=== PATIENT | male | born 1985 | race Caucasian/White ===

== ENCOUNTER 2017-04-11 17:51 | Emergency (ER) | payer BC ==
[2017-04-11] MEDS ORDERED: KETOROLAC 30 MG/ML 1 ML VIAL IVP STA (18:53)
[2017-04-11] MEDS ORDERED: SODIUM CHLORIDE 0.9% 1,000 ML IV STA (18:53)
--- NOTE | 2017-04-11 18:59 | ED ---
General Adult HPI - General Chief complaint: Headache Stated complaint: migraine Time Seen by Provider: 04/11/17 18:38 Source: patient Mode of arrival: ambulatory Limitations: no limitations - History of Present Illness Initial comments: 31-year-old male patient presents to emergency department today for evaluation after having an episode of visual disturbance with sudden onset headache. Patient states approximately 2 hours ago he was at work on a computer when his vision went very bright, then blurred. Patient states that this lasted approximately 5-6 minutes then resolved. Patient states a few minutes later he had return of the visual disturbance with a sudden onset headache. Patient states the headache feels like a pressure behind his eyes. He states that the headache is persistent however the visual disturbance has resolved. He states he does feel lightheaded and dizzy. He states he also had shortness of breath with this. He denies any weakness, numbness, tingling, chest pain, or palpitations. He denies any history of similar symptoms. He states he did have migraine headaches when he was in middle school however they resolved and he hasn't had one since. He denied any aura or visual disturbance with those headaches. Patient denies any recent rash, fever, chills, abdominal pain, nausea , vomiting, diarrhea, constipation, back pain, hematuria, dysuria, urinary urgency, urinary frequency, or any other complaints. Patient does have past medical history significant for hypertension. - Related Data Home Medications Medication Instructions Recorded Confirmed Allopurinol [Zyloprim] 300 mg PO DAILY 04/11/17 04/11/17 Meloxicam [Mobic] 7.5 mg PO AC-BID 04/11/17 04/11/17 Omeprazole 40 mg PO DAILY 04/11/17 04/11/17 amLODIPine BESYLATE/BENAZEPRIL 1 cap PO DAILY 04/11/17 04/11/17 [Lotrel 5-20 mg Capsule] Allergies Allergy/AdvReac Type Severity Reaction Status Date / Time No Known Allergies Allergy Verified 04/11/17 18:56 Review of Systems ROS Statement: Those systems with pertinent positive or pertinent negative responses have been documented in the HPI. ROS Other: All systems not noted in ROS Statement are negative. Past Medical History Additional Past Medical History / Comment(s): gout, kidney stones History of Any Multi-Drug Resistant Organisms: None Reported Additional Past Surgical History / Comment(s): kidney stones Past Psychological History: No Psychological Hx Reported Smoking Status: Never smoker Past Alcohol Use History: Rare Past Drug Use History: None Reported General Exam Limitations: no limitations General appearance: alert, in no apparent distress, other (This is a well- developed, well-nourished adult male patient in no acute distress. Vital signs upon presentation are temperature 98.1F, pulse 77, respirations 18, blood pressure 146/86, pulse ox 98% on room air.) Head exam: Present: atraumatic, normocephalic, normal inspection Eye exam: Present: normal appearance, PERRL, EOMI. Absent: scleral icterus, conjunctival injection, nystagmus, periorbital swelling ENT exam: Present: normal exam, normal oropharynx, mucous membranes moist, TM's normal bilaterally Neck exam: Present: normal inspection, full ROM. Absent: tenderness, meningismus, lymphadenopathy Respiratory exam: Present: normal lung sounds bilaterally. Absent: respiratory distress, wheezes, rales, rhonchi, stridor Cardiovascular Exam: Present: regular rate, normal rhythm, normal heart sounds. Absent: systolic murmur, diastolic murmur, rubs, gallop, clicks GI/Abdominal exam: Present: soft, normal bowel sounds. Absent: distended, tenderness, guarding, rebound, rigid Neurological exam: Present: alert, oriented X3, CN II-XII intact, other ( Strength in all extremities 5/5.) Psychiatric exam: Present: normal affect, normal mood Skin exam: Present: warm, dry, intact, normal color. Absent: rash Course Vital Signs 04/11/17 18:16 Temperature 98.1 F Pulse Rate 77 Respiratory 18 Rate Blood Pressure 146/86 O2 Sat by Pulse 98 Oximetry EKG Findings - EKG Comments: EKG Findings:: EKG obtained in 1921 shows normal sinus rhythm with minimal voltage criteria for LVH, may be a normal variant. Ventricular rate is 78, W[place] interval 186, QRS duration 102, QT 390, QTC 444. No evidence of ST elevation or depression. Medical Decision Making - Medical Decision Making 31-year-old male patient presented for evaluation of visual disturbance and sudden onset headache. Labs reviewed and were unremarkable. CT of the brain without contrast showed no acute abnormalities. Physical exam is unremarkable, patient neurologically intact. Patient reports that visual disturbance has resolved. Patient did have mild improvement headache after receiving medications here in the department. He is driving himself today and was unable to receive anything stronger for pain. Patient was instructed to follow-up with his primary care physician for recheck in 1-2 days. He is instructed to return here immediately for any new, worsening, or concerning symptoms. He verbalized understanding and agreed with this plan. - Lab Data Result diagrams: 04/11/17 19:15 04/11/17 19:15 Lab Results 04/11/17 04/11/17 04/11/17 Range/Units 19:15 19:15 19:15 WBC 7.1 (3.8-10.6) k/uL RBC 5.82 (4.30-5.90) m/uL Hgb 16.2 (13.0-17.5) gm/dL Hct 49.5 (39.0-53.0) % MCV 85.2 (80.0-100.0) fL MCH 27.9 (25.0-35.0) pg MCHC 32.7 (31.0-37.0) g/dL RDW 14.5 (11.5-15.5) % Plt Count 224 (150-450) k/uL Neutrophils % 70 % Lymphocytes % 22 % Monocytes % 5 % Eosinophils % 1 % Basophils % 1 % Neutrophils # 4.9 (1.3-7.7) k/uL Lymphocytes # 1.5 (1.0-4.8) k/uL Monocytes # 0.4 (0-1.0) k/uL Eosinophils # 0.1 (0-0.7) k/uL Basophils # 0.0 (0-0.2) k/uL Sodium 141 (137-145) mmol/L Potassium 4.1 (3.5-5.1) mmol/L Chloride 105 (98-107) mmol/L Carbon Dioxide 22 (22-30) mmol/L Anion Gap 14 mmol/L BUN 14 (9-20) mg/dL Creatinine 0.96 (0.66-1.25) mg/dL Est GFR (MDRD) Af Amer >60 (>60 ml/min/1.73 sqM) Est GFR (MDRD) Non-Af >60 (>60 ml/min/1.73 sqM) Glucose 124 H (74-99) mg/dL Calcium 9.6 (8.4-10.2) mg/dL Total Bilirubin 0.7 (0.2-1.3) mg/dL AST 33 (17-59) U/L ALT 49 (21-72) U/L Alkaline Phosphatase 66 (38-126) U/L Troponin I <0.012 (0.000-0.034) ng/mL Total Protein 7.1 (6.3-8.2) g/dL Albumin 4.2 (3.5-5.0) g/dL - Radiology Data Radiology results: report reviewed, image reviewed CT of the head is performed without contrast shows ventricles are of normal size. There is no mass effect or midline shift. There is no sign of intracranial hemorrhage. The calvarium is intact. There is debris in the left external auditory canal. Impression by Dr. Keita shows negative computed tomography scan of the brain. Disposition Clinical Impression: Headache Disposition: HOME SELF-CARE Condition: Good Instructions: Acute Headache (ED) Additional Instructions: Increase fluids. Follow up with your primary care physician for recheck in 1-2 days. Return here immediately for any new, worsening, or concerning symptoms. Referrals: David Flores MD [Primary Care Provider] - 1-2 days Time of Disposition: 20:22
[2017-04-11 19:38] LABS: Basophils % (A) 1 %; CH 27.3; CHCM 32.2; Eosinophils # (A) 0.1 k/uL (0-0.7); Eosinophils % (A) 1 %; HCT 49.5 % (39.0-53.0); HDW 2.66; HGB 16.2 gm/dL (13.0-17.5); Luc % (Auto) 1; Lymphocytes # (A) 1.5 k/uL (1.0-4.8); Lymphocytes % (A) 22 %; MCH 27.9 pg (25.0-35.0); MCHC 32.7 g/dL (31.0-37.0); MCV 85.2 fL (80.0-100.0); Mean Platelet Volume 6.4; Monocytes # (A) 0.4 k/uL (0-1.0); Monocytes % (A) 5 %; Neutrophils # (A) 4.9 k/uL (1.3-7.7); Neutrophils % (A) 70 %; RBC 5.82 m/uL (4.30-5.90); RDW 14.5 % (11.5-15.5); WBC 7.1 k/uL (3.8-10.6); WBC (Perox) 6.42
[2017-04-11 19:47] LABS: ALT 49 U/L (21-72); AST 33 U/L (17-59); Alkaline Phosphatase 66 U/L (38-126); Anion Gap 14 mmol/L; Blood Urea Nitrogen 14 mg/dL (9-20); Calcium 9.6 mg/dL (8.4-10.2); Carbon Dioxide 22 mmol/L (22-30); Chloride 105 mmol/L (98-107); Glucose 124 mg/dL (74-99); Non-African American GFR(MDRD) >60 (>60 ml/min/1.73 sqM); Potassium 4.1 mmol/L (3.5-5.1); Sodium 141 mmol/L (137-145); Total Bilirubin 0.7 mg/dL (0.2-1.3); Total Protein 7.1 g/dL (6.3-8.2)
--- NOTE | 2017-04-11 19:52 | CT ---
EXAMINATION TYPE: CT brain wo con DATE OF EXAM: 04/11/2017 COMPARISON: NONE HISTORY: Visual disturbance and dizziness CT DLP: 1116 mGycm. Automated Exposure Control for Dose Reduction was Utilized. TECHNIQUE: CT scan of the head is performed without contrast. FINDINGS: Ventricles have normal size. There is no mass effect nor midline shift. There is no sign of intracranial hemorrhage. The calvarium is intact. There is debris in the left external auditory miller l. IMPRESSION: Negative CT scan of the brain..
[2017-04-11] MEDS ORDERED: ACETAMINOPHEN TAB 500 MG TAB PO STA (20:20)
[2017-04-11 20:41] VITALS: BP 124/78; PULSE 68; RESP 16; TEMP 97.6
== END 2017-04-11 20:40 | disposition home or self-care (01) ==
LOC: EC 17:51
DX: R51 Headache (principal); R42 Dizziness and giddiness; R06.02 Shortness of breath; M10.9 Gout, unspecified; I10 Essential (primary) hypertension; Z87.442 Personal history of urinary calculi; Z79.899 Other long term (current) drug therapy; Z79.1 Long term (current) use of non-steroidal anti-inflammatories (NSAID); Z86.69 Personal history of other diseases of the nervous system and sense organs
CPT/HCPCS: 96361 ×2; 96374 ×2; 99284 ×2; 36415; 93005; 80053; 84484; 85025; 70450; J1885

== ENCOUNTER → 2018-02-05 | Outpatient (CLI) | payer BC ==
--- NOTE | 2018-02-05 16:10 | CONS ---
CONSULTATION DATE OF SERVICE: 02/05/2018 32-year-old gentleman has been evaluated in the sleep center for possible obstructive sleep apnea-hypopnea syndrome. Patient has been referred to [facility] by [facility]. The nasal breathing restricted bilaterally. HISTORY OF PRESENT ILLNESS/SLEEP WAKE EVALUATION: SLEEP SCHEDULE: Patient's usual sleep schedule working days from around 9:00 p.m. to 7 a.m. and on weekends from around 10 p.m. until 8 or 9:00 am. FALLING ASLEEP: No problem with falling asleep, although patient has TV set in bedroom. DURING SLEEP: He sleeps by himself with snoring. Nobody did tell him about episodes of stopped breathing during the sleep. He wakes up from sleep 2 times with dry mouth. DURING THE DAY/SLEEP WAKE EVALUATION: Sometimes he may feel some tiredness and sleepiness during the day, especially if he is not doing anything. [place] Sleepiness Scale increased to 11. PAST MEDICAL HISTORY: Positive for gout and hypertension. MEDICATIONS: Lotrel and Zyloprim. PAST SURGICAL HISTORY: None. SOCIAL HISTORY: Positive for smoking in the past, quit 12 years ago. Alcohol consumption none. FAMILY HISTORY: Hypertension, snoring, diabetes. REVIEW OF SYSTEMS: Snoring, awakenings from sleep, sometimes sleepiness during the day. PHYSICAL EXAM: A 32-year-old gentleman without distress. BP 180/85, HR 92, RR 18, height 6 feet , weight 457.8, BMI 50.2, temperature 98.1. Oxygen saturation on room air 96%. Oropharynx: Low position of soft palate. Wide neck 19.5 inches in circumference. ABDOMEN: Obese. Neck Supple, no JVD. Thyroid is not palpable. LUNGS Clear to percussion and to auscultation. Good air exchange. No wheezing or rhonchi. HEART S1, S2 regular. No murmurs, gallops, or rubs. ABDOMEN: Obese. Soft and nontender. Bowel sounds are present. No organomegaly appreciated. EXTREMITIES No clubbing or cyanosis. STAMP PAD MAKER Awake, alert, and oriented X3. Cranial nerves 2 to 7 intact. There is no fasciculation or atrophy. noted. No focal deficits observed. IMPRESSION: 1. Snoring, awakenings from sleep, small oropharyngeal air space. Wide neck. Restriction of nasal breathing bilaterally. Obstructive sleep apnea-hypopnea syndrome. 2. Morbid obesity, BMI 50.2. 3. Gout. 4. Hypertension, not on good control with the present medication. Today, blood pressure in the office increased significantly. PLAN: 1. Polysomnography for evaluation of patient's breathing during sleep. 2. CPAP/BiPAP titration if sleep study confirms obstructive sleep apnea-hypopnea syndrome. 3. Preferable position during sleep on the side. 4. No driving if patient feels any sleepiness. 5. I will see patient for follow up visit to explain results of testing and following plan. Thank you very much for referring this patient for consultation. Sincerely, Cleve Del Rosario MD, PhD, FAASM Diplomat of [employer] [facility] [employer] [facility] [place] MMODL / ROSEANNEN: [id number] /
== END | disposition home or self-care (01) ==
LOC: SLEEP 14:30
PROVIDERS: ATTEND Internal Medicine
DX: G47.33 Obstructive sleep apnea (adult) (pediatric) (principal); E66.01 Morbid (severe) obesity due to excess calories; I10 Essential (primary) hypertension; M10.9 Gout, unspecified; Z79.899 Other long term (current) drug therapy; Z87.891 Personal history of nicotine dependence; Z68.43 Body mass index [BMI] 50.0-59.9, adult
CPT/HCPCS: 99211

== ENCOUNTER → 2018-04-02 | Outpatient (CLI) | payer BC ==
--- NOTE | 2018-04-02 17:28 | PN ---
PROGRESS NOTE DATE OF SERVICE: 04/02/2018 This is a 32-year-old gentleman who has been followed in the sleep center for treatment of obstructive sleep apnea-hypopnea syndrome. Recently the patient had a home sleep apnea test which showed extremely severe sleep apnea. After that the patient underwent titration and subsequently was started on treatment with BiPAP. He was able to use his BiPAP equipment without significant problems, except sometimes he does not feel comfortable with the full-face mask. But otherwise with the machine he feels much better during the day and he sleeps much better. I checked his BiPAP unit and reading from his BiPAP machine. He is using equipment 100% of the time. Average usage is 6 hours and 20 minutes. He never uses it for less than 4 hours. Pressure in the machine is 19/15 cm of water. Average leak 29 L/minute. Apnea-hypopnea index reading for the last month is 5.5, which is in good range. [place] Sleepiness Scale today is only 2. MEDICATION: Lotrel, Zyloprim. PHYSICAL EXAMINATION: GENERAL A pleasant gentleman in no distress. VITAL SIGNS: BP 134/77, HR 81, RR 16, weight 462.6, temperature 98.1, oxygen saturation at room air 97%. HEENT: PERRLA, EOMI. Evaluation of oropharynx showed tongue protrudes midline; extremely low position of soft palate. NECK: Supple. No JVD. Thyroid is not palpable. LUNGS: Clear to percussion and to auscultation. Good air exchange. No wheezing or rhonchi. HEART: S1, S2 regular. No murmurs, gallops or rubs. ABDOMEN: Obese. EXTREMITIES : No clubbing or cyanosis. WEB PAGE DESIGNER: Awake, alert, and oriented X3. Cranial nerves 2 to 7 intact. There is no fasciculation or atrophy. noted. No focal deficits observed. IMPRESSION: 1. Extremely severe obstructive sleep apnea-hypopnea syndrome with apnea-hypopnea index 125.3 with oxygen desaturation to 66% by results of home sleep apnea test, most controlled with BiPAP with pressure 19/15 cm of water. Patient demonstrated 100% compliance with treatment, benefitting from treatment. 2. Obesity. 3. Hypertension. 4. Gout. PLAN: 1. Patient will continue to use his BiPAP equipment every night for the whole night. 2. We will consider fitting patient with a different style of full-face mask. 3. Aggressive losing weight program. 4. Sleep hygiene with regular time in bed for at least 8 hours. 5. No driving if feeling any sleepiness. Thank you very much for allowing me to participate in the management of your patient. Sincerely, Cleve Del Rosario MD, PhD, FAASM Diplomat of [employer] Regional Account Manager of [facility] [place] MMODL / ROSEANNEN: [id number] /
== END | disposition home or self-care (01) ==
LOC: SLEEP 15:33
PROVIDERS: ATTEND Internal Medicine
DX: G47.33 Obstructive sleep apnea (adult) (pediatric) (principal); E66.9 Obesity, unspecified; I10 Essential (primary) hypertension; M10.9 Gout, unspecified; Z79.899 Other long term (current) drug therapy

== ENCOUNTER 2018-12-09 11:30 | Emergency (ER) | payer BC ==
[2018-12-09 11:41] VITALS: RESP 18; TEMP 98.2
--- NOTE | 2018-12-09 12:01 | CT ---
EXAMINATION TYPE: CT brain wo con DATE OF EXAM: 12/09/2018 COMPARISON: CT brain April 11, 2017 HISTORY: headache, nausea, dizziness, light sensitivity. CT DLP: 1134.4 mGycm. Automated Exposure Control for Dose Reduction was Utilized. TECHNIQUE: CT scan of the head is performed without contrast. FINDINGS: There is no acute intracranial hemorrhage or midline shift identified. Mild sulcal promin ence over bilateral frontal lobes is redemonstrated consistent with mild bilateral frontal lobe atrop hy. Ventricle size stable and felt within normal limits. The globes are intact and the visualized si nuses are clear. Hyperpneumatized mastoid air cells bilaterally are redemonstrated. IMPRESSION: No acute intracranial hemorrhage or midline shift is seen. No significant change from pr ior.
[2018-12-09] MEDS ORDERED: ONDANSETRON 4 MG/2 ML VIAL IVP STA (12:04)
[2018-12-09] MEDS ORDERED: KETOROLAC 30 MG/ML 1 ML VIAL IVP STA (12:04)
[2018-12-09] MEDS ORDERED: SODIUM CHLORIDE 0.9% 1,000 ML IV STA (12:04)
[2018-12-09] MEDS ORDERED: diphenhydrAMINE 50 MG/ML 1 ML VIAL IVP STA (12:04)
--- NOTE | 2018-12-09 12:15 | ED ---
General Adult HPI - General Chief complaint: Neuro Symptoms/Deficit Stated complaint: headache Time Seen by Provider: 12/09/18 11:45 Source: patient Mode of arrival: ambulatory Limitations: no limitations - History of Present Illness Initial comments: Dictation was produced using [employer] dictation software. please excuse any grammatical, word or spelling errors. Chief Complaint: 32-year-old male presents with acute episode of visual symptoms with headache. History of Present Illness: Patient is a 32-year-old male who has past medical history of migraines he states he was at work at approximately 7:30 AM. He felt some brief visual symptoms that last for several seconds. Approximately 10 minutes later he then began experiencing headaches. He didn't denies a headache having worsening of his life states that it's retro-orbital bilaterally. He describes it as a throbbing in nature. He does report some mild photophobia and phonophobia. Patient has history of migraines. The ROS documented in this emergency department record has been reviewed and confirmed by me. Those systems with pertinent positive or negative responses have been documented in the HPI. All other systems are other negative and/or noncontributory. PHYSICAL EXAM: General Impression: Alert and oriented x3, not in acute distress HEENT: Normocephalic atraumatic, extra-ocular movements intact, pupils equal and reactive to light bilaterally, mucous membranes moist. Cardiovascular: Heart regular rate and rhythm, S1&S2 audible, no murmurs, rubs or gallops Chest: Lungs clear to auscultation bilaterally, no rhonchi, no wheeze, no rales Abdomen: Bowel sounds present, abdomen soft, non-tender, non-distended, no organomegaly Musculoskeletal: Pulses present and equal in all extremities, no peripheral edema Motor: no focal deficits noted Neurological: CN II-XII grossly intact, no focal motor or sensory deficits noted Skin: Intact with no visualized rashes Psych: Normal affect and mood ED course: 32-year-old male presents with chief complaint of headache. He did have a brief episode of visual symptoms. Patient's headache is benign in nature. CT was obtained to rule out subarachnoid bleed. Patient presented within 6 hours of onset of symptoms. CT is unremarkable.. Vital signs upon arrival are within acceptable limits. Patient given headache cocktail.Patient given headache cocktail. He was observed in the emergency department for 2-3 hours. Patient reevaluated with improvement of symptoms. Patient clear for discharge. Patient counseled on migraine precipitants. He is told to avoid alcohol, caffeine, high stress situations and told to get adequate rest. Patient told to eat a good diet. Patient must follow-up with primary care physician upon discharge. Patient clear for discharge. Clinical presentation consistent with benign primary headache likely migraine. - Related Data Home Medications Medication Instructions Recorded Confirmed Allopurinol [Zyloprim] 300 mg PO DAILY 04/11/17 12/09/18 Meloxicam [Mobic] 7.5 mg PO AC-BID 04/11/17 12/09/18 Omeprazole 40 mg PO DAILY 04/11/17 12/09/18 amLODIPine BESYLATE/BENAZEPRIL 1 cap PO DAILY 04/11/17 12/09/18 [Lotrel 5-20 mg Capsule] Allergies Allergy/AdvReac Type Severity Reaction Status Date / Time No Known Allergies Allergy Verified 12/09/18 11:57 Review of Systems ROS Statement: Those systems with pertinent positive or pertinent negative responses have been documented in the HPI. ROS Other: All systems not noted in ROS Statement are negative. Past Medical History Additional Past Medical History / Comment(s): gout, kidney stones History of Any Multi-Drug Resistant Organisms: None Reported Additional Past Surgical History / Comment(s): kidney stones Past Psychological History: No Psychological Hx Reported Smoking Status: Never smoker Past Alcohol Use History: Rare Past Drug Use History: None Reported General Exam Limitations: no limitations Course Vital Signs 12/09/18 12/09/18 12/09/18 11:33 13:00 14:29 Temperature 98.2 F Pulse Rate 78 79 80 Respiratory 18 18 18 Rate Blood Pressure 136/85 151/76 131/72 O2 Sat by Pulse 99 100 100 Oximetry Disposition Clinical Impression: Acute headache Disposition: HOME SELF-CARE Condition: Good Instructions (If sedation given, give patient instructions): Acute Headache (ED) Is patient prescribed a controlled substance at d/c from ED?: No Referrals: David Flores MD [Primary Care Provider] - 1-2 days Time of Disposition: 14:38
[2018-12-09 14:30] VITALS: PULSE 80
[2018-12-09 14:51] VITALS: BP 141/72
== END 2018-12-09 14:52 | disposition home or self-care (01) ==
LOC: EC 11:30
DX: G43.909 Migraine, unspecified, not intractable, without status migrainosus (principal); Z79.1 Long term (current) use of non-steroidal anti-inflammatories (NSAID); Z79.899 Other long term (current) drug therapy
CPT/HCPCS: 70450; 99283; 96374; 96375 ×2; 96361; J1200; J2405; J1885

== ENCOUNTER → 2019-08-25 | Outpatient (CLI) | payer BC ==
--- NOTE | 2019-08-25 16:47 | PN ---
PROGRESS NOTE DATE OF SERVICE: 08/25/2019 This patient is a 33-year-old gentleman who has been followed in Sleep Center for treatment of obstructive sleep apnea-hypopnea syndrome. The patient successfully continues to use his BiPAP equipment. The only problem he has is a leak from his mask, which is recently more than before. [place] Sleepiness Scale today is only 2. I checked his BiPAP unit. Pressure is 19/15 cm of water. Usage is 28/30 nights with 25/30 nights for more than 4 hours. Average usage 5.7 hours per night, which is good compliance. Leak is high at 70 L/minute. At the same time, apnea-hypopnea index is only 3.7, which is normal. MEDICATIONS: Lotrel, Zyloprim. PHYSICAL EXAMINATION: GENERAL: A pleasant patient in no distress. VITAL SIGNS: BP 153/89, HR 94, RR 15, height , weight 427, BMI 47.4. Patient has lost about 25 pounds loss since his previous visit. Temperature 98.1. Oxygen saturation at room air 97%. HEENT: PERRLA, EOMI. Evaluation of oropharynx showed tongue protrudes midline. Extremely low position of soft palate. Mallampati IV. NECK: Supple. No JVD. Thyroid is not palpable. LUNGS: Clear to percussion and to auscultation. Good air exchange. No wheezing or rhonchi. HEART: S1, S2 regular. No murmurs, gallops or rubs. ABDOMEN: Obese. EXTREMITIES: No clubbing or cyanosis. GENERAL LABOR FORKLIFT OPERATOR: Awake, alert, and oriented X3. Cranial nerves 2 to 7 intact. There is no fasciculation or atrophy. noted. No focal deficits observed. IMPRESSION: 1. Extremely severe obstructive sleep apnea-hypopnea syndrome with apnea-hypopnea index 125.3 and oxygen desaturation to 66% by home sleep apnea test. Patient demonstrated great compliance with treatment, benefitting from treatment. Normal respiration on BiPAP. 2. Obesity. 3. Hypertension. 4. Gout. PLAN: 1. Patient will continue to use BiPAP equipment every night for the whole night. 2. We will see about the possibility of replacing his full-face mask with Simplus or DreamWear full-face mask. 3. Continue losing weight. 4. Sleep hygiene with regular time in bed for at least 7-1/2 to 8 hours. 5. No driving if feeling any sleepiness. Thank you very much for allowing me to participate in the management of your patient. Sincerely, Sincerely, Cleve Del Rosario MD, PhD, FAASM Diplomat of [employer] Medicine Vice President Global Digital [employer] of [facility] [place] MMODL / JT: [id number] /
== END ==
LOC: SLEEP 15:12
PROVIDERS: ATTEND Internal Medicine
DX: G47.33 Obstructive sleep apnea (adult) (pediatric) (principal); E66.9 Obesity, unspecified; I10 Essential (primary) hypertension; M10.9 Gout, unspecified; Z68.42 Body mass index [BMI] 45.0-49.9, adult; Z79.899 Other long term (current) drug therapy

== ENCOUNTER 2020-02-19 03:48 | Emergency (ER) | payer BC ==
[2020-02-19 03:55] VITALS: BP 157/95; PULSE 93; RESP 20; TEMP 98.1
[2020-02-19] MEDS ORDERED: HYDROmorphone 1 MG/ML 1 ML SYRINGE IVP STA (04:11)
[2020-02-19] MEDS ORDERED: ONDANSETRON 4 MG/2 ML VIAL IVP STA (04:17)
[2020-02-19 04:32] LABS: Basophils % (A) 1 %; Eosinophils # (A) 0.1 k/uL (0-0.7); Eosinophils % (A) 1 %; HCT 45.9 % (39.0-53.0); HGB 14.8 gm/dL (13.0-17.5); Lymphocytes # (A) 2.1 k/uL (1.0-4.8); Lymphocytes % (A) 28 %; MCH 26.4 pg (25.0-35.0); MCHC 32.2 g/dL (31.0-37.0); MCV 81.9 fL (80.0-100.0); Mean Platelet Volume 7.1; Monocytes # (A) 0.4 k/uL (0-1.0); Monocytes % (A) 6 %; Neutrophils # (A) 4.5 k/uL (1.3-7.7); Neutrophils % (A) 62 %; Platelet Count 222 k/uL (150-450); RDW 14.8 % (11.5-15.5); WBC 7.4 k/uL (3.8-10.6)
[2020-02-19 04:33] LABS: Mucus,Urine Few /hpf; RBC,Urine >182 /hpf (0-5); Squamous Epithelial Cell,Urine 1 /hpf (0-4); WBC,Urine 13 /hpf (0-5)
[2020-02-19 04:34] LABS: Appearance,Urine Slightly Cloudy (Clear); Color,Urine Amber
[2020-02-19 04:35] LABS: Bilirubin,Urine Negative (Negative); Blood,Urine Large (Negative); Glucose,Urine (UA) Negative (Negative); Ketones,Urine Negative (Negative); Nitrite,Urine Negative (Negative); Protein,Urine 1+ (Negative); Urobilinogen,Urine <2.0 mg/dL (<2.0)
[2020-02-19 04:36] LABS: Leukocyte Esterase,Urine Negative (Negative)
[2020-02-19 04:40] LABS: ALT 43 U/L (4-49); AST 42 U/L (17-59); African American GFR (CKD) >90 (>60 ml/min/1.73 sqM); Albumin 4.3 g/dL (3.5-5.0); Alkaline Phosphatase 61 U/L (38-126); Anion Gap 9 mmol/L; Blood Urea Nitrogen 17 mg/dL (9-20); Calcium 9.6 mg/dL (8.4-10.2); Carbon Dioxide 22 mmol/L (22-30); Chloride 106 mmol/L (98-107); Glucose 109 mg/dL (74-99); Non-African American GFR(CKD) >90 (>60 ml/min/1.73 sqM); Potassium 4.2 mmol/L (3.5-5.1); Sodium 137 mmol/L (137-145); Total Bilirubin 0.7 mg/dL (0.2-1.3); Total Protein 7.1 g/dL (6.3-8.2)
[2020-02-19] MEDS ORDERED: TAMSULOSIN 0.4 MG CAP.ER.24H PO STA (04:52)
--- NOTE | 2020-02-19 05:05 | CT ---
EXAMINATION TYPE: CT abdomen pelvis wo con DATE OF EXAM: 02/19/2020 COMPARISON: 03/12/2012 HISTORY: right flank pain CT DLP: 2138.4 mGycm Automated exposure control for dose reduction was used. Images were obtained from the diaphragm to the floor the pelvis with no contrast. FINDINGS: Lung bases are clear. There is no pleural effusion. Heart size is normal. There is no pericardial eff usion. Liver spleen stomach pancreas gallbladder appear normal. Bile ducts are not dilated. There is no adrenal mass. Kidneys have normal size. There is multiple small bilateral renal calculi t hat measure up to 4 mm. There is right-sided hydronephrosis with 5 mm obstructing calculus in the pro ximal right ureter. There is no retroperitoneal adenopathy. Bladder distends smoothly. There is no in guinal hernia. There is no free fluid in the pelvis. Appendix is posterior and appears normal. There is no mesenteric edema. There is no ascites or free a ir. There is no bowel obstruction. There are a few sigmoid diverticula. There is no evidence of diver ticulitis. There is no bowel obstruction. Lumbar vertebra have normal alignment. There is no compress ion fracture. Bony pelvis is intact. IMPRESSION: Obstructing calculus proximal right ureter with right-sided hydronephrosis. Multiple bilateral renal calculi. There is clearing of the obstruction on the left side compared to old exam. Obstruction on t he right side similar to old exam.
--- NOTE | 2020-02-19 05:31 | ED ---
Abdominal Pain HPI - General Chief Complaint: Abdominal Pain Stated Complaint: Right flank pain Time Seen by Provider: 02/19/20 04:00 Source: patient Mode of arrival: ambulatory Limitations: no limitations - History of Present Illness Initial Comments: This patient is 34-year-old man who presents to be evaluated for right flank pain. The patient states that he had been awakened this morning by sharp pain to the right flank. He states it radiated towards the right testicle her right groin. The patient states that the pain was somewhat reminiscent of previous kidney stone pain that he had. Patient also experience nausea. No fever or chills. No change in urination. No change in bowel movements. MD Complaint: flank pain -: hour(s) Location: R flank Radiation: RLQ Migration to: no migration Severity: severe Quality: sharp Consistency: constant Improves With: nothing Worsens With: nothing Associated Symptoms: nausea - Related Data Home Medications Medication Instructions Recorded Confirmed Meloxicam [Mobic] 7.5 mg PO AC-BID 04/11/17 12/09/18 Omeprazole 40 mg PO DAILY 04/11/17 12/09/18 allopurinoL [Zyloprim] 300 mg PO DAILY 04/11/17 12/09/18 amLODIPine BESYLATE/BENAZEPRIL 1 cap PO DAILY 04/11/17 12/09/18 [Lotrel 5-20 mg Capsule] Previous Rx's Medication Instructions Recorded Hydrocodone/Acetaminophen [[place] 1 each PO Q6HR PRN #20 tab 02/19/20 5-325] Ondansetron Odt [Zofran ODT] 4 mg PO Q8HR PRN #10 tab 02/19/20 Tamsulosin [Flomax] 0.4 mg PO DAILY #14 cap 02/19/20 Allergies Allergy/AdvReac Type Severity Reaction Status Date / Time No Known Allergies Allergy Verified 02/19/20 03:55 Review of Systems ROS Statement: Those systems with pertinent positive or pertinent negative responses have been documented in the HPI. ROS Other: All systems not noted in ROS Statement are negative. Constitutional: Denies: fever Respiratory: Denies: cough, dyspnea Cardiovascular: Denies: chest pain, palpitations, edema Gastrointestinal: Reports: abdominal pain, nausea. Denies: vomiting, diarrhea, constipation, melena, hematochezia Genitourinary: Reports: testicular pain. Denies: dysuria, frequency, hematuria, testicular mass Musculoskeletal: Denies: back pain Skin: Denies: rash Neurological: Denies: headache, weakness, numbness Past Medical History Additional Past Medical History / Comment(s): gout, kidney stones History of Any Multi-Drug Resistant Organisms: None Reported Additional Past Surgical History / Comment(s): kidney stones Past Psychological History: No Psychological Hx Reported Smoking Status: Former smoker Past Alcohol Use History: Rare Past Drug Use History: None Reported General Exam Limitations: no limitations General appearance: alert, in no apparent distress Head exam: Present: atraumatic Respiratory exam: Present: normal lung sounds bilaterally. Absent: respiratory distress, wheezes, rales, rhonchi, stridor Cardiovascular Exam: Present: regular rate, normal rhythm, normal heart sounds. Absent: systolic murmur, diastolic murmur, rubs, gallop GI/Abdominal exam: Present: soft, normal bowel sounds. Absent: distended, tenderness, guarding, rebound, rigid, mass, pulsatile mass, hernia Extremities exam: Present: normal inspection, normal capillary refill. Absent: pedal edema, calf tenderness Back exam: Present: normal inspection, CVA tenderness (R). Absent: CVA tenderness (L) Neurological exam: Present: alert Skin exam: Present: warm, dry, intact, normal color. Absent: rash Course Vital Signs 02/19/20 03:53 Temperature 98.1 F Pulse Rate 93 Respiratory 20 Rate Blood Pressure 157/95 O2 Sat by Pulse 100 Oximetry Medical Decision Making - Lab Data Result diagrams: 02/19/20 04:16 02/19/20 04:16 Lab Results 02/19/20 02/19/20 02/19/20 Range/Units 04:16 04:16 04:16 WBC 7.4 (3.8-10.6) k/uL RBC 5.60 (4.30-5.90) m/uL Hgb 14.8 (13.0-17.5) gm/dL Hct 45.9 (39.0-53.0) % MCV 81.9 (80.0-100.0) fL MCH 26.4 (25.0-35.0) pg MCHC 32.2 (31.0-37.0) g/dL RDW 14.8 (11.5-15.5) % Plt Count 222 (150-450) k/uL Neutrophils % 62 % Lymphocytes % 28 % Monocytes % 6 % Eosinophils % 1 % Basophils % 1 % Neutrophils # 4.5 (1.3-7.7) k/uL Lymphocytes # 2.1 (1.0-4.8) k/uL Monocytes # 0.4 (0-1.0) k/uL Eosinophils # 0.1 (0-0.7) k/uL Basophils # 0.0 (0-0.2) k/uL Sodium 137 (137-145) mmol/L Potassium 4.2 (3.5-5.1) mmol/L Chloride 106 (98-107) mmol/L Carbon Dioxide 22 (22-30) mmol/L Anion Gap 9 mmol/L BUN 17 (9-20) mg/dL Creatinine 0.97 (0.66-1.25) mg/dL Est GFR (CKD-EPI)AfAm >90 (>60 ml/min/1.73 sqM) Est GFR (CKD-EPI)NonAf >90 (>60 ml/min/1.73 sqM) Glucose 109 H (74-99) mg/dL Calcium 9.6 (8.4-10.2) mg/dL Total Bilirubin 0.7 (0.2-1.3) mg/dL AST 42 (17-59) U/L ALT 43 (4-49) U/L Alkaline Phosphatase 61 (38-126) U/L Total Protein 7.1 (6.3-8.2) g/dL Albumin 4.3 (3.5-5.0) g/dL Urine Color [place] Urine Appearance Slightly Cloudy (Clear) Urine pH 6.0 (5.0-8.0) Ur Specific [place] 1.030 (1.001-1.035) Urine Protein 1+ H (Negative) Urine Glucose (UA) Negative (Negative) Urine Ketones Negative (Negative) Urine Blood Large H (Negative) Urine Nitrite Negative (Negative) Urine Bilirubin Negative (Negative) Urine Urobilinogen <2.0 (<2.0) mg/dL Ur Leukocyte Esterase Negative (Negative) Urine RBC >182 H (0-5) /hpf Urine WBC 13 H (0-5) /hpf Ur Squamous Epith Cells 1 (0-4) /hpf Urine Mucus Few H (None) /hpf Disposition Clinical Impression: Calculus of kidney Disposition: HOME SELF-CARE Condition: Good Prescriptions: Tamsulosin [Flomax] 0.4 mg PO DAILY #14 cap Hydrocodone/Acetaminophen [[place] 5-325] 1 each PO Q6HR PRN #20 tab PRN Reason: Pain Ondansetron Odt [Zofran ODT] 4 mg PO Q8HR PRN #10 tab PRN Reason: Nausea Is patient prescribed a controlled substance at d/c from ED?: Yes When asked, does pt state using other controlled substances?: No If prescribed controlled substance>3 days was MAPS reviewed?: Prescribed <3 Days If opioid is for acute pain is fill amount 7 days or less?: Yes If Rx opioid, was Start Talking consent form obtained?: Yes Referrals: David Flores MD [Primary Care Provider] - 1-2 days
== END 2020-02-19 05:42 | disposition home or self-care (01) ==
LOC: EC 03:48
DX: N20.0 Calculus of kidney (principal); M10.9 Gout, unspecified; Z79.1 Long term (current) use of non-steroidal anti-inflammatories (NSAID); Z79.899 Other long term (current) drug therapy; Z87.891 Personal history of nicotine dependence
CPT/HCPCS: 36415; 80053; 85025; 81001; 74176; 99284; 96374; 96375; J2405; J1170

== ENCOUNTER 2021-06-17 16:41 | Emergency (ER) | payer BC, OTHER ==
[2021-06-17] MEDS ORDERED: BAMLANIVIMAB (EUA) 700 MG, ETESEVIMAB (EUA) 1,400 MG in SODIUM CHLORIDE 0.9% 50 ML IVPB ONE (20:00)
[2021-06-17] MEDS ORDERED: SODIUM CHLORIDE 0.9% 50 ML IVPB ONE (20:00)
[2021-06-17] MEDS ORDERED: IBUPROFEN 600 MG TAB PO STA (20:32)
[2021-06-17] MEDS ORDERED: ACETAMINOPHEN TAB 325 MG TAB PO STA (20:32)
[2021-06-17 20:46] VITALS: BP 115/72; PULSE 86; RESP 16; TEMP 98.7
--- NOTE | 2021-06-17 20:47 | ED ---
General Adult HPI - General Chief complaint: Upper Respiratory Infection Stated complaint: JOSH, Fever, possible covid Time Seen by Provider: 06/17/21 18:52 Source: patient, RN notes reviewed, old records reviewed Mode of arrival: ambulatory Limitations: no limitations - History of Present Illness Initial comments: Patient is a 35-year-old male with past medical history unremarkable who presents emergency Department over concern for COVID-19 exposure and COVID-19 infection. Patient has been having less than 1 week of symptoms including upper respiratory, fevers, cough. Patient is obese. He denies any chest pain, nausea, vomiting. He is tolerating by mouth intake. Didn't lose his sense of taste and smell. Known Covid positive exposure. Was not vaccinated for COVID- 19. Has no other acute complaints at this time. - Related Data Home Medications Medication Instructions Recorded Confirmed Meloxicam [Mobic] 7.5 mg PO AC-BID 04/11/17 12/09/18 Omeprazole 40 mg PO DAILY 04/11/17 12/09/18 allopurinoL [Zyloprim] 300 mg PO DAILY 04/11/17 12/09/18 amLODIPine BESYLATE/BENAZEPRIL 1 cap PO DAILY 04/11/17 12/09/18 [Lotrel 5-20 mg Capsule] Previous Rx's Medication Instructions Recorded Hydrocodone/Acetaminophen [[place] 1 each PO Q6HR PRN #20 tab 02/19/20 5-325] Ondansetron Odt [Zofran ODT] 4 mg PO Q8HR PRN #10 tab 02/19/20 Tamsulosin [Flomax] 0.4 mg PO DAILY #14 cap 02/19/20 Albuterol Inhaler [Ventolin Hfa 1 puff INHALATION RT-QID #8 gm 06/17/21 Inhaler] Allergies Allergy/AdvReac Type Severity Reaction Status Date / Time No Known Allergies Allergy Verified 06/17/21 16:58 Review of Systems ROS Statement: Those systems with pertinent positive or pertinent negative responses have been documented in the HPI. Review of Systems: CONST: endorses fever EYES: Denies blurry vision ENT: Endorses nasal congestion, cough C/V: Denies Chest pain RESP: Denies shortness of breath GI: Denies abdominal pain : Denies dysuria SKIN: Denies rash. MSK: Denies joint pain. NEURO: Denies headache ROS Other: All systems not noted in ROS Statement are negative. Past Medical History Additional Past Medical History / Comment(s): gout, kidney stones History of Any Multi-Drug Resistant Organisms: None Reported Additional Past Surgical History / Comment(s): kidney stones Past Psychological History: No Psychological Hx Reported Smoking Status: Former smoker Past Alcohol Use History: Rare Past Drug Use History: None Reported General Exam - General Exam Comments Initial Comments: General: Appears in no acute distress. HEAD: Normal with no signs of head trauma. EYES: EOMI ENT: Hearing grossly intact, normal oropharynx. RESPIRATORY: Clear breath sounds bilaterally. No wheezes, rales, or rhonchi. Hypoxic. No increased work of breathing. C/V: Regular rate and rhythm. S1 and S2 auscultated, no edema, peripheral pulses 2+ and intact throughout ABD: Abd is soft, nontender, nondistended EXT: Normal range of motion, no obvious deformity SKIN: No rashes or lesions observed on exposed skin. NEURO: Alert and oriented 4. Limitations: no limitations Course Vital Signs 06/17/21 06/17/21 16:54 20:46 Temperature 97.8 F 98.7 F Pulse Rate 96 86 Respiratory 18 16 Rate Blood Pressure 163/81 115/72 O2 Sat by Pulse 97 97 Oximetry Medical Decision Making - Medical Decision Making Based on the patient's presentation and physical exam, he appears to be having Covid symptoms. Covid swab was obtained in triage and was found to be positive. I do not believe that he requires any laboratory studies or imaging. I did discuss medical antibiotic therapy with the patient and he did accept. Patient will be administered monoclonal antibodies. He was in agreement this plan. Patient tolerated the therapy well. He will be discharged home at this time. I discussed with them quarantine. I will provide the patient with a prescription for albuterol inhaler. I instructed the patient to follow up with their PCP in the next 3 days. I explained that the patient should return to the emergency department if they experience any worsening symptoms. Strict return precautions were discussed with the patient. The patient expressed understanding of these instructions. I answered all questions that the patient had. The patient was discharged home in fair condition with their prescriptions and follow up information. - Lab Data Lab Results 06/17/21 Range/Units 17:00 Coronavirus (PCR) Detected A (Not Detectd) Disposition Clinical Impression: COVID-19 virus infection Disposition: HOME SELF-CARE Condition: Fair Instructions (If sedation given, give patient instructions): Coronavirus Disease 2019 (COVID-19) Prescriptions: Albuterol Inhaler [Ventolin Hfa Inhaler] 1 puff INHALATION RT-QID #8 gm Is patient prescribed a controlled substance at d/c from ED?: No Referrals: David Flores MD [Primary Care Provider] - 1-2 days
== END 2021-06-17 21:08 | disposition home or self-care (01) ==
LOC: EC 16:41
DX: U07.1 COVID-19 (principal); Z87.891 Personal history of nicotine dependence
CPT/HCPCS: 87635; 99284; J3490

== ENCOUNTER → 2021-09-20 | Outpatient (CLI) | payer OTHER ==
--- NOTE | 2021-09-20 21:47 | SFUN ---
SLEEP CENTER FOLLOW UP NOTE DATE OF SERVICE: 09/20/2021 This 35-year-old gentleman has been followed in Sleep Center for treatment of obstructive sleep apnea-hypopnea syndrome. I saw this patient two years ago. The patient continues to use BiPAP equipment every night for the whole night. No snoring. He is getting his supplies on time. [place] Sleepiness Scale today is 3. I checked his BiPAP unit. Pressure is 19/15 cm of water. Usage is 30/30 nights for more than 4 hours, average 7.8 hours per night. Leak is 1 L/minute, which is absolutely perfect. Apnea-hypopnea index is 1.6, which is totally normal. MEDICATIONS: 1. Phentermine 37.5 mg once a day. 2. Omeprazole 40 mg once a day. 3. Allopurinol 300 mg once a day. 4. Meloxicam 15 mg once a day. 5. Amlodipine/benazepril 5/10 mg once a day. PHYSICAL EXAMINATION: GENERAL: Pleasant patient in no distress. VITAL SIGNS: BP 109/75, HR around 100, RR 16, weight 448.6 pounds. Patient's weight increased by around 20 pounds compared with his previous visit. Temperature 96.2, oxygen saturation at room air 97%. HEENT: PERRLA, EOMI, evaluation of oropharynx showed tongue protrudes midline. Extremely low position of soft palate; Mallampati IV. NECK: Supple, no JVD. Thyroid is not palpable. LUNGS: Clear to percussion and to auscultation. Good air exchange. No wheezing or rhonchi. HEART: S1, S2 regular. No murmurs, gallops, or rubs. ABDOMEN: Obese. EXTREMITIES: No clubbing or cyanosis. WELL TREATMENT OFFSIDER: Awake, alert, and oriented X3. Cranial nerves 2 to 7 intact. There is no fasciculation or atrophy. noted. No focal deficits observed. IMPRESSION: 1. Extremely severe obstructive sleep apnea-hypopnea syndrome. Original apnea- hypopnea index 125.3 with oxygen desaturation to 66%. The patient demonstrated 100% compliance with treatment of BiPAP. Normal respiration on BiPAP. Apnea- hypopnea index 1.6, benefitting from treatment. 2. Hypertension. 3. Acid reflux. 4. Gout. 5. Obesity. PLAN: 1. Patient will continue to use PAP equipment every night for the whole night. 2. Sleep hygiene with regular time in bed for at least 7-1/2 to 8 hours. 3. Precautions related to driving. No driving if feeling sleepiness. 4. I will maintain all necessary prescription for PAP supplies including mask, tube, filters. 5. Watching weight. 6. Follow-up visit in 6 months or earlier if patient has any problems. Thank you very much for allowing me to participate in the management of your patient. Sincerely, Cleve Del Rosario MD, PhD, FAASM Diplomat of [employer] Sleep Medicine Board of [employer] Care Analyst of [facility] [place] MMODL / IJN: [id number] /
== END | disposition home or self-care (01) ==
LOC: SLEEP 15:36
PROVIDERS: ATTEND Internal Medicine
DX: G47.33 Obstructive sleep apnea (adult) (pediatric) (principal); I10 Essential (primary) hypertension; K21.9 Gastro-esophageal reflux disease without esophagitis; M10.9 Gout, unspecified; E66.9 Obesity, unspecified

== ENCOUNTER → 2022-05-02 | Outpatient (CLI) | payer OTHER ==
--- NOTE | 2022-05-02 15:59 | P.PN ---
Subjective DATE: 05/02/2022 FOLLOW UP VISIT. Patient with obstructive sleep apnea hypopnea syndrome return to sleep center for follow-up visit. Information from previous visit have been reviewed. Patient is using BPAP equipment every night for the whole night, getting BPAP supplies in time. The patient does not have significant problems with the mask, BPAP unit and humidification. [place] sleepiness scale is 3, which is totally normal. I checked BPAP unit. BPAP unit pressure 19/15 cm H2O. Usage is 100 % for more then 4 hours, average 7.8 hours per night. Leak is 5 l/m, which is in acceptable range. Apnea Hypopnea Index is 1.6, which is perfect. MEDICATIONS:1. Amlodipinebenazepril 5/10 mg once a day 2. Allopurinol 300 mg once a day 3. Meloxicam 15 mg once a day 4. Omeprazole 40 mg once a day During physical exam: GENERAL: A pleasant patient without any distress. VITAL SIGNS: BP 130/80, HR 82, RR 18 , weight 481, height 6 foot 8 inches, BMI 52.8,, temperature 97.9, oxygen saturation at room air 97 % . HEENT: PERRLA, EOMI.low position of soft palate, Mallapati 4 . NECK: Supple. No JVD. LUNGS: Clear to percussion and to auscultation. Good air exchange. No wheezing or rhonchi. HEART: S1, S2 regular. ABDOMEN: Soft and nontender. Obese EXTREMITIES: No clubbing or cyanosis. MACHINIST APPRENTICE WOOD: Awake, alert, and oriented x3. No focal deficit. Impressions: 1. Obstructive sleep apnea-hypopnea syndrome. Patient demonstrated great compliance with treatment, benefiting from treatment. 2. Obesity, body mass index 52.8. 3. Hypertension. 4. Acid reflux. 5. Gout. Plan: 1. Continue using PAP equipment every night for the whole night. 2. To change air filter at least 1-2 times per month. 3. PAP unit should stay lower then position of the head. 4. Advised patient to remove all remaining water from humidifier canister daily and make it dry after each usage. Refill canister with fresh distilled water before each usage. 5. Sleep hygiene with regular time in bed for at least 8 hours. 6. Precautions related to driving. No driving if feel any sleepiness. 7. I will maintain prescription for PAP supplies including mask, tube, filters. 8. Follow up visit in 6 months or earlier if patient has any problems. 9. Losing weight. Thank you very much for allowing me to participate in the management of your patient. Cleve Del Rosario MD, PhD, FAASM. Diplomat of [place] [employer], Sleep Medicine Board by [place] [employer] Test Car Driver of [facility] [place]
== END ==
LOC: SLEEP 14:56
PROVIDERS: ATTEND Internal Medicine
DX: G47.33 Obstructive sleep apnea (adult) (pediatric) (principal); E66.9 Obesity, unspecified; Z68.43 Body mass index [BMI] 50.0-59.9, adult; I10 Essential (primary) hypertension; K21.9 Gastro-esophageal reflux disease without esophagitis; M10.9 Gout, unspecified; Z99.89 Dependence on other enabling machines and devices
CPT/HCPCS: 99212